=== PATIENT | male | born 1975 | race Caucasian/White ===

== ENCOUNTER → 2024-05-22 | Outpatient (CLI) | payer BC | LOC: COL.RAD 12:16 | DX: E06.3 Autoimmune thyroiditis (principal); E04.1 Nontoxic single thyroid nodule ==

== ENCOUNTER → 2024-06-03 | Outpatient (CLI) | payer BC ==
[~2024-06-03] VITALS: Ht 182.9 cm; Wt 86.7 kg
[~2024-06-03] MED LIST: LEVOXYL0.05 MG PO; MULTI VITAMINS1 TAB PO; PRILOTC PO
[2024-06-03 08:39] VITALS: BP 128/93; PULSE 64; TEMP 99.1
[2024-06-03 09:50] VITALS: BP 148/98; PULSE 61
--- NOTE | 2024-06-03 11:56 | NUR ---
1010--PATIENT HAS COMPLETED RECOVERY PERIOD. PATIENT DECLINES ANYTHING TO EAT OR DRINK. PATIENT DENIES ANY PAIN. BANDAGE REMAINS CLEAN, DRY, AND INTACT. PATIENT IS ABLE TO TEACH BACK D/C ISNTRUCTIONS. ALL NEEDS MET. ESCORTED PATIENT WITH ALL OF HIS BELONGINGS OFF THE UNIT.
== END ==
LOC: COL.RAD 08:01
DX: E04.1 Nontoxic single thyroid nodule (principal)